=== PATIENT | male | born 1965 | race Caucasian/White ===

== ENCOUNTER 2024-06-28 15:48 | Emergency (ER) | payer OTHER, MEDICAID ==
[~2024-06-28] VITALS: Ht 172.7 cm; Wt 68.0 kg
[2024-06-28 16:17] LABS: BASOPHILS % (AUTO) 0.3 % (0-1); EOSINOPHILS % (AUTO) 0.2 % (0-6); HEMATOCRIT 52.7 % (42.0-52.0); HEMOGLOBIN 17.6 g/dl (14.0-17.9); LYMPHOCYTES # (AUTO) 1.3 X10'3 (1.1-4.8); LYMPHOCYTES % (AUTO) 12.1 % (21-51); MEAN CORPUSCULAR HEMOGLOBIN 30.5 PG (27.0-31.0); MEAN CORPUSCULAR HGB CONC 33.4 g/dL (33.0-36.5); MEAN CORPUSCULAR VOLUME 91.4 FL (78-98); MEAN PLATELET VOLUME 8.2 FL (7.4-10.4); MONOCYTES # (AUTO) 0.6 X10'3 (0-0.9); MONOCYTES % (AUTO) 5.9 % (2-12); NEUTROPHILS # (AUTO) 8.9 X10'3 (1.8-7.7); NEUTROPHILS % (AUTO) 81.5 % (42-75); PLATELET COUNT 342 X10'3 (140-440); RED BLOOD COUNT 5.76 X10'6 (4.70-6.10); RED CELL DISTRIBUTION WIDTH 14.2 % (11.5-14.5); WHITE BLOOD COUNT 10.9 X10'3 (4.5-11.0)
[2024-06-28] MEDS ORDERED: TIRZ2.5P SQ (16:27)
[2024-06-28 16:31] LABS: BILIRUBIN,URINE NEGATIVE (Neg); CLARITY,URINE SLIGHTLY CLOUDY (Clear); COLOR,URINE YELLOW (Yellow); GLUCOSE, URINE NEGATIVE (Neg); KETONES,URINE 15 mg/dl (Neg); LEUKOCYTE ESTERASE ,URINE NEGATIVE (Neg); NITRITES, URINE NEGATIVE (Neg); OCCULT BLOOD,URINE NEGATIVE (Neg); PROTEIN,URINE NEGATIVE (Neg); UROBILINOGEN,URINE 0.2 E.U/dL (0.2-1.0)
[2024-06-28 16:38] LABS: URINE AMPHETAMINE SCREEN NEGATIVE (Neg); URINE BARBITUATE SCREEN NEGATIVE (Neg); URINE BENZODIAZEPINES SCREEN NEGATIVE (Neg); URINE CANNABINOID SCREEN NEGATIVE (Neg); URINE COCAINE SCREEN NEGATIVE (Neg); URINE METHADONE SCREEN NEGATIVE (Neg); URINE OPIATE SCREEN NEGATIVE (Neg); URINE PHENCYCLIDINE SCREEN NEGATIVE (Neg)
[2024-06-28 16:42] LABS: ALBUMIN 4.2 G/DL (3.4-5.0); ANION GAP 10 (8-16); BLOOD UREA NITROGEN 15 MG/DL (7-18); BUN/CREATININE RATIO 15.6 (10.0-20.0); CALCIUM 9.1 MG/DL (8.5-10.1); CHLORIDE 105 MMOL/L (99-107); CREATININE 0.96 MG/DL (0.60-1.10); ETHANOL < 10 MG/DL (<10); GLUCOSE 102 MG/DL (70-104); POTASSIUM 4.2 MMOL/L (3.5-5.1); SODIUM 142 MMOL/L (135-145); THYROID STIMULATING HORMONE 1.57 ulU/ml (0.34-4.50); TOTAL CARBON DIOXIDE 27.2 MMOL/L (24-32); eCRCL 81 ML/MIN; eGFR 80 ML/MIN
[2024-06-28 16:42] LABS: UA COLLECTION TYPE CLN CATCH MIDSTREAM
[2024-06-28 17:13] LABS: RBC,URINE NONE SEEN /HPF (0-2); WBC,URINE 0-4 /HPF (0-4)
[2024-06-28 17:14] LABS: BACTERIA,URINE FEW /HPF (Neg); SQUAMOUS EPITHELIAL CELL,UR FEW /LPF (FEW)
[2024-06-28] MEDS: hydrOXYzine 25 MG tablet PO ONE (19:23)
[2024-06-29 09:04] VITALS: BP 112/76; PULSE 97; RESP 16; O2SAT 99
[2024-06-29 09:06] VITALS: TEMP 98.8
== END 2024-06-29 09:17 | disposition home or self-care (01) ==
LOC: ER 15:49
DX: F32.A Depression, unspecified (principal); R45.851 Suicidal ideations; Z79.899 Other long term (current) drug therapy; Z20.822 Contact with and (suspected) exposure to COVID-19
CPT/HCPCS: 36415; 80048; 80305; 80320; 81001; 82948; 84443; 85025; 87811; 99284; Q0177

== ENCOUNTER 2024-09-15 16:48 | Emergency (ER) | payer OTHER, MEDICAID ==
[~2024-09-15] VITALS: Ht 172.7 cm; Wt 67.6 kg
[~2024-09-15 16:48] MED LIST: TIRZ2.5P SQ
--- NOTE | 2024-09-15 17:14 | ELECTROCARDIOGRAPH REPORT ---
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
[2024-09-15 17:34] LABS: MEAN PLATELET VOLUME 8.6 FL (7.4-10.4); RED CELL DISTRIBUTION WIDTH 14.5 % (11.5-14.5)
--- NOTE | 2024-09-15 17:43 | RADIOLOGY REPORT ---
CHEST RADIOGRAPH Indication: CP Technique: Single frontal view of the chest was obtained Comparison: None FINDINGS: Lines and Tubes: None Lungs: No focal consolidation. Pleura: No effusion. No pneumothorax. Cardiomediastinal contours: Unremarkable Bones: No acute osseous abnormality. Partially visualized cervical fixation hardware. IMPRESSION: No acute cardiopulmonary disease.
--- NOTE | 2024-09-15 17:43 | Physician Documentation ---
History of Present Illness ~ Chief Complaint: Diabetic Complication Stated Complaint: "MY BLOOD SUGAR IS SPIKING AND CRASHING" Time Seen by MD: 19:02 Primary Medical Doctor: [facility] Source: patient, family Mode of Arrival: POV Exam Limitations: no limitations HPI 59-year-old male with history of type 2 diabetes concerned due to fatigue, malaise since this morning and states that his blood sugar was 191. Patient states he has seen lower blood sugars in the 70s. Patient currently is monitoring blood sugars but diet controlled taking no medications. Patient denies any fever, cough, chest pain, shortness of breath. Other than his blood sugar patient is unaware of what could be causing his difficulty with concentration and fatigue Medication Reconciliation Allergies: Coded Allergies: No Known Allergies (Unverified , 06/28/24) Scheduled Tirzepatide (Mounjaro), 2.5 MG SQ Q7D, (Reported) Physical Exam Vital Signs: Temperature: 97.7, Source: Temporal, Heart Rate: 102, Respiratory Rate: 16, BP: 118/99, Pulse Oximetry: 99, Weight: 67.600 Physical Exam General: Alert, no apparent distress. HEENT: PERRL, EOMI, no injection, moist mucous membranes. Neck: Full range of motion. Respiratory: Lungs clear, no respiratory distress. Chest: No accessory muscle use. Cardiovascular: Regular rate and rhythm, no murmurs. Neurologic: Oriented x4. Psychiatric: Normal mood and affect. Skin: Normal color, warm and dry. No edema, no ecchymosis. Progress Results/Orders Results/Orders Vital Signs 09/15/24 09/15/24 16:55 19:18 Temp 97.7 Pulse 102 85 Resp 16 18 B/P (MAP) 118/99 151/90 (110) Pulse Ox 99 99 O2 Flow Rate 0 Laboratory Tests Test 09/15/24 16:58 09/15/24 17:13 09/15/24 18:49 Glucometer 138 H White Blood Count 7.1 Red Blood Count 5.25 Hemoglobin 15.7 Hematocrit 46.9 Mean Corpuscular Volume 89.4 Mean Corpuscular Hemoglobin 30.0 Mean Corpuscular Hemoglobin Concent 33.5 Red Cell Distribution Width 14.5 Platelet Count 281 Mean Platelet Volume 8.6 Neutrophils (%) (Auto) 68.3 Lymphocytes (%) (Auto) 20.3 L Monocytes (%) (Auto) 9.1 Eosinophils (%) (Auto) 1.9 Basophils (%) (Auto) 0.4 Neutrophils # (Auto) 4.8 Lymphocytes # (Auto) 1.4 Monocytes # (Auto) 0.6 Eosinophils # (Auto) 0.1 Basophils # (Auto) 0.0 CBC Comment Sodium Level 141 Potassium Level 3.7 Chloride Level 106 Carbon Dioxide Level 26.3 Anion Gap 9 Blood Urea Nitrogen 15 Creatinine 1.13 H Estimated GFR/1.73 m2 66 BUN/Creatinine Ratio 13.3 Glucose Level 102 Calcium Level 8.5 Troponin I High Sensitivity 4 4 Pro-B-Type Natriuretic Peptide < 30 Albumin 3.6 Chemistry Comments Troponin I High Sens Percent Delta 0 Troponin I Hi Sens Absolute Change 0 EKG/XRAY/CT/US/VASC/MRI Chest X-Ray : Additional Comments I personally reviewed the x-ray, and it shows: No focal consolidation, no pulmonary edema, normal mediastinum Chance Murillo MD Medical Decision Making Differential Dx:Considerations: Include: Dehydration, Diabetes, Electrolyte abnormality, Hepatitis, Hypoglycemia Departure Time of Disposition: 20:05 Disposition: 01 HOME / SELF CARE / HOMELESS Impression: Primary Impression: Dizziness Additional Impression: Fatigue Condition: Stable Referrals: NO PRIMARY CARE PROVIDER (PCP) Education Educated: Patient, Family Educated regarding: diagnosis, need for follow up Signature Scribe Signature: na Attestation: na Addendum Physician assessment: I independently evaluated this patient, performed a history and physical exam as well. Please see the MSE history and exam for further information. HPI: The patient presents feeling general fatigue and dizziness today, shortly after he woke up. He tells me that he did go outside in the heat yesterday, and then forgot to take his trazodone and did not sleep well last night. Today he has been feeling generally fatigued, and intermittently dizzy. He tells me that he has been checking his blood sugar and 1 time it was elevated after he ate and then 1 time it was low. He normally has a continuous glucose monitor on, but it would not function because he got too sweaty. No fevers, chills, congestion, cough, chest pain, shortness of breath, nausea, vomiting, diarrhea. He did eat normal meals today. He just drank a bottle of Gatorade. He has been urinating normally. He is not on any blood sugar medications. He was concerned because he had been on metformin in the past but his liver and kidney function were abnormal and so it was stopped. He has a history of depression and anxiety, but denies being under more stress than normal recently. Physical exam: General: This is a well-appearing middle-aged man sitting calmly in bed, at bedside HEENT: Atraumatic, oropharynx is not dry appearing Heart: Regular rate and rhythm, normal-appearing peripheral perfusion Lungs: Clear breath sounds bilateral, normal work of breathing, no wheezing or crackles, normal oxygen saturation on room air Abdomen: Soft, nondistended, nontender all quadrants including in the lower abdomen Neuro: Alert and oriented, no focal deficits Psychiatric: Appears mildly anxious about his condition, but otherwise is cooperative with exam Assessment and plan: The patient presents with general fatigue and intermittent dizziness. On exam he has normal vital signs and a unremarkable physical exam. He does not appear clinically dehydrated. No chest pain or abdominal pain. No abnormality on his blood testing. I had a long discussion with the patient and his regarding his symptoms and workup. I suspect this may be related to over exertion in the extreme heat outside yesterday as well as not sleeping well. He has no evidence to suggest a more dangerous medical or surgical emergency at this time. He is reassured and discharged with home care instructions and return precautions. ROMAN Treviño MD, NP Sep 15, 2024 17:43 CHANCE MURILLO MD Sep 15, 2024 20:06
[2024-09-15 17:54] LABS: CREATININE 1.13 MG/DL (0.60-1.10); PRO BRAIN NATRIURETIC PEPTIDE < 30 PG/ML (0-125); TOTAL CARBON DIOXIDE 26.3 MMOL/L (24-32); eCRCL 67 ML/MIN; eGFR 66 ML/MIN
[2024-09-15 19:18] VITALS: BP 151/90; PULSE 85; O2SAT 99
[2024-09-15 19:30] VITALS: RESP 18
[2024-09-15 20:08] VITALS: TEMP 97.7
== END 2024-09-15 20:09 | disposition home or self-care (01) ==
LOC: ER 16:48
DX: R42 Dizziness and giddiness (principal); R53.83 Other fatigue; E11.9 Type 2 diabetes mellitus without complications; F32.A Depression, unspecified; F41.9 Anxiety disorder, unspecified; Z79.899 Other long term (current) drug therapy
CPT/HCPCS: 36415; 71045; 80048; 82948; 83880; 84484; 85025; 93005; 99285

== ENCOUNTER 2024-11-05 23:13 | Emergency (ER) | payer OTHER, MEDICAID ==
[~2024-11-05] VITALS: Ht 172.7 cm; Wt 87.0 kg
[2024-11-06 00:17] LABS: MEAN PLATELET VOLUME 8.3 FL (7.4-10.4); RED CELL DISTRIBUTION WIDTH 14.3 % (11.5-14.5)
[2024-11-06 00:19] LABS: CREATININE 1.07 MG/DL (0.60-1.10); TOTAL CARBON DIOXIDE 29.1 MMOL/L (24-32); eCRCL 72 ML/MIN; eGFR 71 ML/MIN
--- NOTE | 2024-11-06 02:23 | Physician Documentation ---
History of Present Illness Chief Complaint: Abdominal Pain Stated Complaint: ABDOMINAL PAIN Time Seen by MD: 02:21 Primary Medical Doctor: JANEL HENDERSON This is a 59-year-old gentleman with no significant past medical history who presents for evaluation of left lower quadrant abdominal pain that began enema sudden. It is sharp. It radiates into his left testicle. Has been able to elicit any palliating or aggravating factors. The pain is moderate to severe in its intensity. Did not attempt to treat it. This never happened in the past. He has been radiculitis in the pain in the left lower quadrant, but this feels different. No prior history of kidney stones. Denies any blood in stool. Denies hematuria. Denies any fever or chills. No concern for tobacco, alcohol or illicit substances use Medication Reconciliation Allergies: Coded Allergies: No Known Allergies (Unverified , 11/05/24) Scheduled Tirzepatide (Mounjaro), 2.5 MG SQ Q7D, (Reported) Review of Systems ROS 10 point review of systems was performed and unless noted above in HPI is negative for acute process/complaint. Physical Exam Vital Signs: Temperature: 98.6, Source: Temporal, Heart Rate: 91, Respiratory Rate: 15, BP: 123/87, Pulse Oximetry: 98, Weight: 87.000 Physical Exam GENERAL: Awake, alert, oriented, GCS 15, no apparent distress, non-toxic appearing, answers questions, follows commands appropriately. Examined in triage, accompanied by HEENT: Atraumatic, normocephalic, pupils equal, extraocular muscles intact, sclerae anicteric, mucus membranes moist, oropharynx is clear, no stridor. NECK: supple, full active range of motion, trachea midline, no thyromegaly, no lymphadenopathy, no JVD. CARDIOVASCULAR: regular rate/rhythm, no murmurs/gallops/rubs, Pulses are 2+ in all extremities and symmetric. Capillary refill less than 2 seconds. PULMONARY: Nonlabored, good air movement ,no respiratory distress, speaking in full sentences, clear to auscultation bilaterally, no wheezing, no ronchi, no rales, no accessory muscle use. GASTROINTESTINAL: Soft, left lower quadrant tenderness to palpation reproducing chief complaint, non-distended, normal active bowel sounds, no organomegaly, no pulsatile masses, no CVA tenderness. NEUROLOGIC: Lucid with normal mental status. Normal facial symmetry. Moves all extremities symmetrically and with purpose. No truncal ataxia. Speech is fluid without evidence of dysarthria or aphasia, no focal deficits appreciated. MUSCULOSKELETAL: There is full range of motion of all extremities. There is no joint pain or joint swelling or joint erythema. There is no muscle pain or tenderness or swelling. EXTREMITIES: warm, well-perfused, no cyanosis, no clubbing, no edema, no acute deformities. Skin: warm, dry, no rashes or lesions, no jaundice, no petechiae orpurpura. No ecchymosis. PSYCHIATRIC: Normal affect, normal insight, normal concentration. Focused exam: [] No guarding or rebound Progress Results/Orders Results/Orders Orders - GOLDIE EASON DO Urinalysis, Cult If Indicated (11/05/24 23:35) Ct Abdomen Pelvis (11/06/24 01:49) Completed Orders - GOLDIE EASON DO Cbc/Diff (11/05/24 23:35) BMP (11/05/24 23:35) Lipase (11/05/24 23:35) CMP (11/05/24 23:35) Vital Signs 11/05/24 23:32 Temp 98.6 Pulse 91 Resp 15 B/P (MAP) 123/87 Pulse Ox 98 Laboratory Tests Test 11/05/24 23:55 White Blood Count 7.9 Red Blood Count 5.32 Hemoglobin 16.2 Hematocrit 47.5 Mean Corpuscular Volume 89.3 Mean Corpuscular Hemoglobin 30.4 Mean Corpuscular Hemoglobin Concent 34.1 Red Cell Distribution Width 14.3 Platelet Count 312 Mean Platelet Volume 8.3 Neutrophils (%) (Auto) 66.5 Lymphocytes (%) (Auto) 22.1 Monocytes (%) (Auto) 7.2 Eosinophils (%) (Auto) 3.6 Basophils (%) (Auto) 0.6 Neutrophils # (Auto) 5.3 Lymphocytes # (Auto) 1.7 Monocytes # (Auto) 0.6 Eosinophils # (Auto) 0.3 Basophils # (Auto) 0.0 CBC Comment Sodium Level 141 Potassium Level 3.7 Chloride Level 105 Carbon Dioxide Level 29.1 Anion Gap 7 L Blood Urea Nitrogen 11 Creatinine 1.07 Estimated GFR/1.73 m2 71 BUN/Creatinine Ratio 10.3 Glucose Level 103 Calcium Level 9.0 Total Bilirubin 0.9 Aspartate Amino Transf (AST/SGOT) 28 Alanine Aminotransferase (ALT/SGPT) 44 Alkaline Phosphatase 89 Total Protein 6.8 Albumin 3.7 Globulin 3.1 Albumin/Globulin Ratio 1.2 Lipase 74 Chemistry Comments Medical Decision Making Findings Facility Status: ED Holds, RME process The plan was discussed with the patient, who demonstrates clear understanding of the plan and is in agreement with the plan unless otherwise noted in the chart. All questions have been answered, all concerns were addressed unless otherwise documented. I was available throughout their ED stay for frequent reassessment and questi ons. Differential Diagnoses (considered and possible or likely): [Differential diagno sis considered includes renal colic, acute appendicitis, acute cholecystitis, pancreatitis, gastritis, PUD, diverticulitis, mesenteric ischemia, abdominal aortic aneurysm, bowel obstruction, enteritis, colitis, fecal impaction, volvulus, IBS, inflammatory bowel disease, specific food intolerance, peritonitis, perforated viscous, malignancy, UTI, abscess, and abdominal pain NOS. History, physical exam, and workup exclude many of the more serious causes listed above. ] ??Differential Diagnoses (considered and unlikely, not requiring evaluation currently): [See above] MDM Data Please see HPI for the following: Independent Historians and external Records Review. Historian: [Patient] Independent Historians: ?[, record review] Medication Management: [Reviewed medication list] Social History and determinants: [Reviewed] Please see the body of the note for the following: Any independent interpretations of ECG, imaging studies. All vitals signs/haemodynamics, ordered tests were independently reviewed and interpreted by myself. Nursing triage complaint and vitals reviewed, additional nursing notes were reviewed as available and I agree unless otherwise noted or documented in contra diction in the chart Vital Signs: Independently reviewed Labs: Independently interpreted Imaging: Independently interpreted Old Medical Records: Independently reviewed, see HPI for relevant summary and information Pulse Oximetry: [99%] interpreted as [normal on room air] by me [Maintenance Services Dispatcher: [Regular Rate, Regular rhythm, no ectopy, NSR] reviewed and interpreted by me] Additionally notably showing: [Hemodynamics reviewed. The patient isn't febrile, not tachycardic, no evidence of hypotension respiratory distress. CBC is normal. Metabolic panel is unremarkable. No evidence of acidosis, normal renal function, lipase is also normal. UA is nondiagnostic for UTI. Advanced imaging was obtained. CT of the abdomen and pelvis shows diverticulosis without diverticulitis. Left inguinal hernia.] Tests considered but not ordered include: [Not applicable] Social Determinants of Health Impact: Patient was evaluated in [facility], or [facility] [place] with [place] access to healthcare due to below par ratio of patient to medical providers. [] Comorbid Conditions Impacting Present Evaluation and Care/Treatment: [History of diverticulitis] Management Discussions with other Healthcare Providers: [None] Treatment and Disposition Medication Management (Given or considered): [Pain management]. See EMR for details Consideration for Hospitalization/Escalation/Deescalation of Care: Admission for observation has been considered, [however the patient is able to tolerate p.o., their symptoms are controlled, they are able to rely on oral medications, and their chief complaint/diagnosis can be managed on outpatient basis.] ?ED Course:?[No clinical deterioration] ?Shared decision making:?[Patient is hemodynamically stable for discharge home with follow with their primary care provider. [ ] Specific and cautious return precautions provided and discussed with full understanding. Any incidental findings were also discussed and follow up recommendations given. [] All questions answered. Patient/family were able to verbalize back return precautions. Patient/family agree to plan. Copies of imaging and laboratory studies were provided.] Code status:?FULL Please see the full Electronic Medical Record for full details of nursing documentation, medications list, other records of complete past medical history and conditions, vital signs, laboratory studies, and any radiologic study interpretations by radiologists. Portions of this note were completed using [employer] dictation software and as a result there may exist minor errors in spelling. I have reviewed elements of past family and social history and agree as included in note. Departure Disposition: 01 HOME / SELF CARE / HOMELESS (Ordered) Impression: Primary Impression: Left lower quadrant abdominal pain Additional Impressions: Diverticulosis Left inguinal hernia Condition: Improved Discharge Instructions: Abdominal Pain (Nonspecific) Additional Instructions: There is no clear explanation for your abdominal pain today. There does not appear to be any acute intra-abdominal process requiring surgical intervention, antibiotics, or hospital stay. The CT did show diverticulosis, however no inflammation/diverticulitis. It also showed left inguinal hernia, however there was no evidence of obstruction or incarceration. This from the Referrals: NO PRIMARY CARE PROVIDER (PCP) Education Educated: Patient Educated regarding: diagnosis, treatment, prognosis, need for follow up Signature Scribe Signature: No scribe Attestation: This note accurately reflects clinical decisions, work performed by myself, DO YUMI Wills NICHOLAS M DO Nov 06, 2024 02:23
[2024-11-06 02:54] LABS: LEUKOCYTE ESTERASE ,URINE NEGATIVE (Neg); NITRITES, URINE NEGATIVE (Neg); OCCULT BLOOD,URINE NEGATIVE (Neg)
[2024-11-06 02:57] LABS: UA COLLECTION TYPE CLN CATCH MIDSTREAM
[2024-11-06] MEDS: HYDROcodone/acetaminophen 5mg/325mg tablet PO ONE (02:59)
[2024-11-06] MEDS ORDERED: iohexol 300mg/ml 100ml inj. ONE (03:43)
[2024-11-06 05:08] VITALS: BP 114/83; PULSE 69; RESP 16; O2SAT 96
--- NOTE | 2024-11-06 05:16 | RADIOLOGY REPORT ---
Exam: CT CT ABDOMEN PELVIS W/ IV CONTRAST History: LLQ pain COMPARISON: None Technique: Multidetector spiral CT of the abdomen and pelvis was performed from lung bases to pubic s ymphysis. Intravenous contrast was administered during this examination. Portal venous imaging was o btained. Axial, coronal and sagittal multiplanar reformats were performed by the technologist on a [employer] workstation. Radiation Dose : 1. Abdomen/Pelvis: CTDIvol 19.94 mGy, DLP 1084.44 mGy*cm. CONTRAST: Type of contrast: Omnipaque 300 Contrast injected: 100 ml Findings: Lung Bases: No acute or significant lung base finding. Normal heart size. No pleural or pericardial effusion. Liver: The liver is normal in size. Hepatic steatosis. 1.2 cm right hepatic lobe cyst. No focal lesio ns. Normal hepatic vascular enhancement. Gallbladder and Biliary Tree: Cholelithiasis and mild gallbladder distention. Spleen: Unremarkable Pancreas: The pancreas is normal in appearance without focal lesions or abnormal enhancement. Adrenal Glands: Unremarkable Kidneys: No hydronephrosis. Bladder: Unremarkable Bowel: The stomach is grossly normal in appearance. Small bowel and colon are normal in caliber and d istribution. Diverticulosis coli without CT evidence of acute diverticulitis. The appendix is normal. Ascites: Absent Lymphadenopathy: No mesenteric, retroperitoneal or periportal lymphadenopathy. Abdominal Wall and Mesentery: Unremarkable. Vasculature: The visualized abdominal aorta is normal in size and caliber. Abdominal and pelvic vess els demonstrate normal enhancement. Pelvic Organs: Mild prostatomegaly, measuring 4.9 cm transverse. Left inguinal hernia contains fat an d a segment of sigmoid colon without definite evidence of incarceration or obstruction. Musculoskeletal: No aggressive focal bony lesions, acute fractures or dislocation. IMPRESSION: 1. Hepatic steatosis. 2. Left inguinal hernia containing a partial segment of sigmoid colon without evidence of incarcerati on or obstruction. 3. Diverticulosis coli without CT evidence of acute diverticulitis. Radiation optimization: All CT scans at this facility use at least one of these dose optimization sly hniques: automated exposure control mA and/or kV adjustment per patient size (includes targeted exam s where dose is matched to clinical indication) or iterative reconstruction.
[2024-11-06 05:58] VITALS: TEMP 98.6
== END 2024-11-06 06:00 | disposition home or self-care (01) ==
LOC: ER 23:13
DX: K57.30 Diverticulosis of large intestine without perforation or abscess without bleeding (principal); K40.90 Unilateral inguinal hernia, without obstruction or gangrene, not specified as recurrent; Z79.899 Other long term (current) drug therapy
CPT/HCPCS: 36415; 74177; 80053; 81003; 83690; 85025; 99285; Q9967